=== PATIENT | male | born 1960 ===

== ENCOUNTER 2021-12-10 13:00 | Outpatient (NON) | payer BC, SELFPAY | END 2021-12-10 13:01 | disposition home or self-care (01) | PROVIDERS: Visit Provider Nurse Practitioner | DX: C44.511 Basal cell carcinoma of skin of breast (principal); C44.519 Basal cell carcinoma of skin of other part of trunk | CPT/HCPCS: 88305 ==

== ENCOUNTER 2022-01-25 08:00 | Outpatient (NON) | payer BC, SELFPAY | END 2022-01-25 08:01 | disposition home or self-care (01) | PROVIDERS: PCP Nurse Practitioner; Visit Provider Nurse Practitioner | DX: C44.01 Basal cell carcinoma of skin of lip (principal); C44.511 Basal cell carcinoma of skin of breast; C44.519 Basal cell carcinoma of skin of other part of trunk | CPT/HCPCS: 88305; 88331 ==

== ENCOUNTER 2022-03-01 14:20 | Outpatient (NON) | payer BC, SELFPAY | END 2022-03-01 14:21 | disposition home or self-care (01) | LOC: ANHLAB 14:20 | PROVIDERS: PCP Nurse Practitioner; Visit Provider Nurse Practitioner | DX: C44.01 Basal cell carcinoma of skin of lip (principal) | CPT/HCPCS: 88305; 88331 ==

== ENCOUNTER 2022-09-23 08:00 | Outpatient (NON) | payer SELFPAY | END 2022-09-23 08:01 | disposition home or self-care (01) | PROVIDERS: PCP Nurse Practitioner; Visit Provider Nurse Practitioner | DX: C44.519 Basal cell carcinoma of skin of other part of trunk (principal) | CPT/HCPCS: 88305 ==

== ENCOUNTER 2022-10-11 14:09 | Outpatient (NON) | payer SELFPAY | END 2022-10-11 14:10 | disposition home or self-care (01) | LOC: ANHLAB 14:10 | PROVIDERS: PCP Nurse Practitioner; Visit Provider Nurse Practitioner | DX: C44.519 Basal cell carcinoma of skin of other part of trunk (principal) | CPT/HCPCS: 88305; 88331 ==